=== PATIENT | female | born 1995 | race Caucasian/White ===

== ENCOUNTER 2017-02-27 13:10 | Inpatient (IN) | payer OTHER ==
[2017-02-27 13:44] VITALS: BMI 24.1
--- NOTE | 2017-02-27 18:48 | HP ---
COWS - Scale Resting Pulse: 0= [place] 80 or Below Sweatin= Chills/Flushing Restless Observation: 3= Extraneous Movement Pupil Size: 0= Normal to Room Light Bone or Joint Aches: 2= Severe Diffuse Aches Runny Nose/ Eye Tearin= Runny Nose/Eyes GI Upset > 30mins: 3= Vomiting/Diarrhea Tremor Observation: 2= Slight Tremor Visible Yawning Observation: 0= None Anxiety or Irritability: 2=Irritable/Anxious Goose Flesh Skin: 0=Smooth Skin COWS Score: 15 CIWA Score - CIWA Score Nausea/Vomitin-Mild Nausea/No Vomiting Muscle Tremors: 4-Moderate,w/Arms Extend Anxiety: 4-Mod. Anxious/Guarded Agitation: 4-Moderately Restless Paroxysmal Sweats: 1-Minimal Palms Moist Orientation: 2-Disoriented Date<2 days Tacttile Disturbances: 0-None Auditory Disturbances: 0-None Visual Disturbances: 0-None Headache: 0-None Present CIWA-Ar Total Score: 16 Admission [facility] - HPI Chief Complaint: WITHDRAWAL SX Allergies/Adverse Reactions: Allergies Allergy/AdvReac Type Severity Reaction Status Date / Time Fish Containing Products Allergy Verified 02/27/17 18:55 History of Present Illness: 22 YEARS OLD FEMALE WITH LONG HISTORY OF OPIATE XANAX NICOTINE DEPENDENCE HAS ASTHMA AND DEPRESSION AND ANXIETY IS ADMITTED TO DETOX Exam Limitations: No Limitations - Ebola screening Have you traveled outside of the country in the last 21 days: No Have you had contact with anyone from an Ebola affected area: No Have you been sick,other than usual withdrawal symptoms: No Do you have a fever: No - Review of Systems Constitutional: Loss of Appetite, Changes in sleep, Unintentional Wgt. Loss, Unexplained wgt Loss EENT: reports: No Symptoms Reported Respiratory: reports: SOB with Exertion Cardiac: reports: No Symptoms Reported GI: reports: Diarrhea, Nausea, Poor Appetite, Poor Fluid Intake, Abdominal cramping : reports: No Symptoms Reported Musculoskeletal: reports: Back Pain, Joint Pain, Muscle Pain, Neck Pain Integumentary: reports: Change in Color (HANDS + ARMS) Neuro: reports: Tremors Endocrine: reports: No Symptoms Reported Hematology: reports: No Symptoms Reported Psychiatric: reports: Judgement Intact, Anxious, Depressed Other Systems: Reviewed and Negative Patient History - Patient Medical History Hx Anemia: No Hx Asthma: Yes Hx Chronic Obstructive Pulmonary Disease (COPD): No Hx Cancer: No Hx Cardiac Disorders: No Hx Congestive Heart Failure: No Hx Hypertension: No Hx Hypercholesterolemia: No Hx Pacemaker: No HX Cerebrovascular Accident: No Hx Seizures: No Hx Dementia: No Hx Diabetes: No Hx Gastrointestinal Disorders: No Hx Liver Disease: No Hx Genitourinary Disorders: No Hx Sexually Transmitted Disorders: No Hx Renal Disease (ESRD): No Hx Thyroid Disease: No Hx Human Immunodeficiency Virus (HIV): No Hx Hepatitis C: No Hx Depression: Yes Hx Suicide Attempt: No Hx Bipolar Disorder: No Hx Schizophrenia: No - Patient Surgical History Past Surgical History: No - PPD History Previous Implant?: Yes Documented Results: Negative w/o proof Implanted On Prior [facility] Admission?: No PPD to be Administered?: Yes - Reproductive History Patient is a Female of Child Bearing Age (11 -55 yrs old): Yes Last Menstrual Period: 02/28/16 Patient : No - Smoking Cessation Smoking history: Current every day smoker Have you smoked in the past 12 months: Yes Aproximately how many cigarettes per day: 20 Cigars Per Day: 0 Hx Chewing Tobacco Use: No Initiated information on smoking cessation: Yes 'Breaking Loose' booklet given: 02/27/17 - Substance & Tx. History Hx Alcohol Use: Yes Hx Substance Use: Yes Substance Use Type: Alcohol, Cocaine, Heroin, Tranquilizers Hx Substance Use Treatment: Yes (2015 [facility]) - Substances Abused Heroin Route: Injection Frequency: Daily Amount used: 15 BAGS Age of first use: 15 Date of Last Use: 02/27/17 Alprazolam (Xanax) Route: Oral Frequency: 1-2 times per week Amount used: 8 MG Age of first use: 13 Date of Last Use: 02/25/17 Cocaine Route: Smoking Frequency: Daily Amount used: 150$ Age of first use: 15 Date of Last Use: 02/27/17 Alcohol Route: Oral Frequency: 3-6 times per week Amount used: 24OZX7 BEER Age of first use: 10 Date of Last Use: 02/26/17 Family Disease History - Family Disease History Family Disease History: Respiratory: Mother, Other: Brother (NO BROTHER) Admission Physical Exam [facility] - Vital Signs Vital Signs: Vital Signs - 24 hr 02/27/17 13:42 Temperature 97.0 F L Pulse Rate 77 Respiratory 18 Rate Blood Pressure 120/73 - Physical General Appearance: Yes: Appropriately Dressed, Mild Distress, Thin, Tremorous, Irritable, Sweating, Anxious HEENTM: Yes: Hearing grossly Normal, Normal ENT Inspection, Normocephalic, Normal Voice Respiratory: Yes: Chest Non-Tender, No Respiratory Distress, No Accessory Muscle Use, Wheezing Neck: Yes: Supple, Trachea in good position Breast: Yes: Breasts Symetrical Cardiology: Yes: Regular Rhythm, Regular Rate, S1, S2, Murmur Abdominal: Yes: Non Tender, Increased Bowel Sounds Genitourinary: Yes: Within Normal Limits Back: Yes: Normal Inspection Musculoskeletal: Yes: full range of Motion, Gait Steady, Back pain, Muscle Pain Extremities: Yes: Normal Inspection (IV HEROIN HANDS + ARMS), Normal Range of Motion, Non-Tender, Tremors Neurological: Yes: Alert, Motor Strength 5/5, Normal Response, Depressed Affect Integumentary: Yes: Warm, Track [place] Lymphatic: Yes: Within Normal Limits - Diagnostic (1) Alcohol dependence with uncomplicated withdrawal Current Visit: Yes Status: Acute (2) Opioid dependence with withdrawal Current Visit: Yes Status: Acute (3) Sedative, hypnotic or anxiolytic dependence with withdrawal, uncomplicated Current Visit: Yes Status: Acute (4) Cocaine dependence with withdrawal Current Visit: Yes Status: Chronic (5) Nicotine dependence Current Visit: Yes Status: Acute Qualifiers: Nicotine product type: cigarettes Substance use status: in withdrawal Qualified Code(s): F17.213 - Nicotine dependence, cigarettes, with withdrawal (6) Asthma Current Visit: Yes Status: Chronic Qualifiers: Asthma severity: mild Asthma persistence: intermittent Asthma complication type: with status asthmaticus Qualified Code(s): J45.22 - Mild intermittent asthma with status asthmaticus (7) Weight loss Current Visit: Yes Status: Acute (8) Bipolar II disorder Current Visit: Yes Status: Suspected (9) Murmur, cardiac Current Visit: Yes Status: Chronic Comment: ASYMPTOMATIC NO TREATMENT Cleared for Admission S - Detox or Rehab [facility] Level of Care: Medically Managed Detox Regimen/Protocol: Methadone/Valium S Breath Alcohol Content Breath Alcohol Content: 0 Urine Pregancy Test - Result Urine Test Results: Negative- NO Line Present Urine Drug Screen - Control Is Test Valid: Yes - Results Drug Screen Negative: No Urine Drug Screen Results: BHARATHI-Cocaine, OPI-Opiates, BZO-Benzodiazepines
[2017-02-27] MEDS ORDERED: guaiFENesin/D-METHORPHAN HB 10 ML UNIT-DOSE CUPS PO PRN (19:06)
[2017-02-27] MEDS ORDERED: MAG HYDROX/AL HYDROX/SIMETH 30 ML UNIT-DOSE CUP PO PRN (19:06)
[2017-02-27] MEDS ORDERED: LOPERAMIDE HCL 2 MG CAPSULE PO PRN (19:06)
[2017-02-27] MEDS ORDERED: diazePAM 5 MG TABLET PO ONE (19:06)
[2017-02-27] MEDS ORDERED: NICOTINE POLACRILEX 4 MG GUM BC PRN (19:06)
[2017-02-27] MEDS ORDERED: MAGNESIUM HYDROX 2400MG/30ML ORAL SUSPENSION 30 ML CUP PO PRN (19:06)
[2017-02-27] MEDS ORDERED: ACETAMINOPHEN 325 MG TABLET (FP) PO PRN (19:06)
[2017-02-27] MEDS ORDERED: MAGNESIUM CITRATE 300 ML BOTTLE PO PRN (19:06)
[2017-02-27] MEDS ORDERED: MENTHOL/PHENOL 1 EACH UD MM PRN (19:06)
[2017-02-27] MEDS ORDERED: METHADONE HCL 10 MG TABLET (FOR DETOX USE ONLY) PO ONE ×2 (19:06→23:00)
[2017-02-27] MEDS ORDERED: IBUPROFEN 400 MG TABLET (FP) PO PRN (19:06)
[2017-02-27] MEDS ORDERED: P-EPHED 60MG/TRIPROLIDI 2.5MG TABLET PO PRN (19:06)
[2017-02-27] MEDS ORDERED: ALBUTEROL SO4 18 GM HFA INHALER IH PRN (19:08)
[2017-02-27] MEDS: METHOCARBAMOL 500 MG TABLET PO PRN (22:22)
[2017-02-27] MEDS: GABAPENTIN 300 MG CAPSULE (FP) PO SCH (22:22)
[2017-02-27] MEDS: THIAMINE HCL 100 MG TABLET (FP) PO SCH (22:22)
[2017-02-27] MEDS: diazePAM 5 MG TABLET PO SCH (22:24)
[2017-02-27] MEDS: LIDOCAINE PATCH REMOVAL MC SCH (23:12)
[2017-02-28] MEDS: GABAPENTIN 300 MG CAPSULE (FP) PO SCH ×3 (05:57→22:12)
[2017-02-28] MEDS: diazePAM 5 MG TABLET PO SCH ×3 (05:58→22:12)
[2017-02-28] MEDS ORDERED: METHADONE HCL 10 MG TABLET (FOR DETOX USE ONLY) PO SCH (10:00)
[2017-02-28 10:05] LABS: HEMATOCRIT 39.5 % (32.4-45.2); HEMOGLOBIN 12.7 GM/dL (10.7-15.3); MCH 27.2 pg (25.7-33.7); MCHC 32.3 g/dl (32.0-36.0); MEAN CELL VOLUME 84.3 fl (80-96); PLATELET COUNT 318 K/MM3 (134-434); RBC 4.68 M/mm3 (3.60-5.2); RDW 14.5 % (11.6-15.6)
[2017-02-28 10:14] LABS: CHLORIDE 105 mmol/L (98-107); POTASSIUM 4.8 mmol/L (3.5-5.1); SODIUM 140 mmol/L (136-145)
[2017-02-28 10:28] LABS: ALK PHOS 91 U/L (45-117); ANION GAP 5 (8-16); BILIRUBIN,TOTAL 0.3 mg/dL (0.2-1.0); BLOOD UREA NITROGEN 14 mg/dL (7-18); CALCIUM 8.4 mg/dL (8.5-10.1); CO2 30 mmol/L (21-32); CREATININE 0.6 mg/dL (0.55-1.02); GLUCOSE,RANDOM 89 mg/dL (74-106); SGOT/AST 9 U/L (15-37); SGPT/ALT 12 U/L (12-78); TOT PROT 6.7 g/dl (6.4-8.2)
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
--- NOTE | 2017-02-28 10:55 | EKG ---
Test Reason : Blood Pressure : / mmHG Vent. Rate : 064 BPM Atrial Rate : 064 BPM P-R Int : 124 ms QRS Dur : 086 ms QT Int : 444 ms P-R-T Axes : 030 058 048 degrees QTc Int : 458 ms NORMAL SINUS RHYTHM NORMAL ECG NO PREVIOUS ECGS AVAILABLE Confirmed by MD Steffen, Dru ([id number]) on 02/28/2017 10:55:06 AM Referred By: Demetrio Reed Confirmed By:Dru Bourne MD
[2017-02-28] MEDS: NICOTINE 21 MG/24 HOURS TOPICAL PATCH TD SCH (11:14)
[2017-02-28] MEDS: LIDOCAINE 5% TOPICAL PATCH TP SCH (11:14)
[2017-02-28] MEDS: PRENATAL VITAMINS W/ FOLIC ACID TABLET (FP) PO SCH (11:14)
[2017-02-28] MEDS: diazePAM 5 MG TABLET PO PRN ×3 (11:17→19:43)
--- NOTE | 2017-02-28 11:34 | PN ---
[facility] CIWA - CIWA Score Nausea/Vomitin-No Nausea/No Vomiting Muscle Tremors: 4-Moderate,w/Arms Extend Anxiety: 4-Mod. Anxious/Guarded Agitation: 4-Moderately Restless Paroxysmal Sweats: 3 Orientation: 0-Oriented Tacttile Disturbances: 0-None Auditory Disturbances: 0-None Visual Disturbances: 0-None Headache: 1-Very Mild CIWA-Ar Total Score: 16 BHS COWS - Scale Resting Pulse: 1= [place] 81-100 Sweatin=Flushed/Facial Moisture Restless Observation: 1= Difficult to Sit Still Pupil Size: 0= Normal to Room Light Bone or Joint Aches: 2= Severe Diffuse Aches Runny Nose/ Eye Tearin= Runny Nose/Eyes GI Upset > 30mins: 1= Stomach Cramp Tremor Observation of Outstretched Hands: 2= Slight Tremor Visible Yawning Observation: 2= >3x During Session Anxiety or Irritability: 2=Irritable/Anxious Goose Flesh Skin: 0=Smooth Skin COWS Score: 15 S Progress Note (SOAP) Subjective: sweats shakes body aches chills interrupted sleep Objective: 02/28/17 11:33 Vital Signs Temperature 97.7 F 02/28/17 10:37 Pulse Rate 86 02/28/17 10:37 Respiratory Rate 18 02/28/17 10:37 Blood Pressure 123/72 02/28/17 10:37 O2 Sat by Pulse Oximetry (%) Laboratory Tests 02/28/17 02/28/17 07:00 07:00 WBC 7.0 RBC 4.68 Hgb 12.7 Hct 39.5 MCV 84.3 MCH 27.2 MCHC 32.3 RDW 14.5 Plt Count 318 MPV 9.0 Sodium 140 Potassium 4.8 Chloride 105 Carbon Dioxide 30 Anion Gap 5 L BUN 14 Creatinine 0.6 Creat Clearance w eGFR > 60 Random Glucose 89 Calcium 8.4 L Total Bilirubin 0.3 AST 9 L ALT 12 Alkaline Phosphatase 91 Total Protein 6.7 Albumin 3.0 L rest of labs pending aaox3 ambulating no acute distress Assessment: 02/28/17 11:33 withdrawal sx Plan: continue detox increase fluids labs pending
[2017-02-28 15:10] LABS: URINE APPEARANCE SLCLOUDY; URINE BILIRUBIN NEGATIVE (NEGATIVE); URINE BLOOD NEGATIVE (NEGATIVE); URINE COLOR YELLOW; URINE GLUCOSE (UA) NEGATIVE (NEGATIVE); URINE KETONE NEGATIVE (NEGATIVE); URINE LEUK ESTERASE TRACE (NEGATIVE); URINE NITRITE POSITIVE (NEGATIVE); URINE PROTEIN NEGATIVE (NEGATIVE); URINE UROBILINOGEN NEGATIVE mg/dL (0.2-1.0)
[2017-02-28 15:25] LABS: EPI CELLS RARE /HPF (FEW); URINE BACTERIA RARE /hpf (NONE SEEN)
[2017-02-28] MEDS: THIAMINE HCL 100 MG TABLET (FP) PO SCH (22:12)
[2017-02-28] MEDS: METHOCARBAMOL 500 MG TABLET PO PRN (22:12)
[2017-02-28] MEDS: QUEtiapine FUMARATE 50 MG TABLET PO SCH (22:12)
[2017-02-28] MEDS: LIDOCAINE PATCH REMOVAL MC SCH (23:01)
[2017-03-01] MEDS: diazePAM 5 MG TABLET PO PRN ×5 (01:29→22:14)
[2017-03-01] MEDS: GABAPENTIN 300 MG CAPSULE (FP) PO SCH ×3 (06:09→22:09)
[2017-03-01] MEDS: diazePAM 5 MG TABLET PO SCH ×3 (10:30→22:11)
[2017-03-01] MEDS: METHADONE HCL 5 MG TABLET (FOR DETOX USE ONLY) PO SCH (10:31)
[2017-03-01] MEDS: LIDOCAINE 5% TOPICAL PATCH TP SCH (10:31)
[2017-03-01] MEDS: PRENATAL VITAMINS W/ FOLIC ACID TABLET (FP) PO SCH (10:31)
[2017-03-01] MEDS: NICOTINE 21 MG/24 HOURS TOPICAL PATCH TD SCH (10:31)
[2017-03-01] MEDS ORDERED: diazePAM 5 MG TABLET PO ONE (10:55)
--- NOTE | 2017-03-01 13:01 | PN ---
S CIWA - CIWA Score Nausea/Vomitin Muscle Tremors: 4-Moderate,w/Arms Extend Anxiety: 3 Agitation: 1-Slight > Activity Paroxysmal Sweats: 2 Orientation: 0-Oriented Tacttile Disturbances: 1-Very Mild Itch/Numbness Auditory Disturbances: 1-Very Mild Visual Disturbances: 1-Very Mild Sensitivity Headache: 0-None Present CIWA-Ar Total Score: 16 BHS COWS - Scale Resting Pulse: 1= [place] 81-100 Sweatin=Flushed/Facial Moisture Restless Observation: 1= Difficult to Sit Still Pupil Size: 0= Normal to Room Light Bone or Joint Aches: 1= Mild Discomfort Runny Nose/ Eye Tearin= None GI Upset > 30mins: 2= Nausea/Diarrhea Tremor Observation of Outstretched Hands: 2= Slight Tremor Visible Yawning Observation: 4= Several Times/Minute Anxiety or Irritability: 2=Irritable/Anxious Goose Flesh Skin: 0=Smooth Skin COWS Score: 15 S Progress Note (SOAP) Subjective: Alert, anxious, interrupted sleep, nausea, shakes, chills, body ache Objective: 03/01/17 13:04 withdrawal symptoms Assessment: 03/01/17 13:05 Last Vital Signs Temp Pulse Resp BP Pulse Ox 98.1 F 91 H 18 99/56 03/01/17 10:00 03/01/17 10:00 03/01/17 10:00 03/01/17 10:00 Laboratory Last Values WBC 7.0 K/mm3 (4.0-10.0) 02/28/17 07:00 RBC 4.68 M/mm3 (3.60-5.2) 02/28/17 07:00 Hgb 12.7 GM/dL (10.7-15.3) 02/28/17 07:00 Hct 39.5 % (32.4-45.2) 02/28/17 07:00 MCV 84.3 fl (80-96) 02/28/17 07:00 MCH 27.2 pg (25.7-33.7) 02/28/17 07:00 MCHC 32.3 g/dl (32.0-36.0) 02/28/17 07:00 RDW 14.5 % (11.6-15.6) 02/28/17 07:00 Plt Count 318 K/MM3 (134-434) 02/28/17 07:00 MPV 9.0 fl (7.5-11.1) 02/28/17 07:00 Sodium 140 mmol/L (136-145) 02/28/17 07:00 Potassium 4.8 mmol/L (3.5-5.1) 02/28/17 07:00 Chloride 105 mmol/L (98-107) 02/28/17 07:00 Carbon Dioxide 30 mmol/L (21-32) 02/28/17 07:00 Anion Gap 5 (8-16) L 02/28/17 07:00 BUN 14 mg/dL (7-18) 02/28/17 07:00 Creatinine 0.6 mg/dL (0.55-1.02) 02/28/17 07:00 Creat Clearance w eGFR > 60 (>60) 02/28/17 07:00 Random Glucose 89 mg/dL (74-106) 02/28/17 07:00 Calcium 8.4 mg/dL (8.5-10.1) L 02/28/17 07:00 Total Bilirubin 0.3 mg/dL (0.2-1.0) 02/28/17 07:00 AST 9 U/L (15-37) L 02/28/17 07:00 ALT 12 U/L (12-78) 02/28/17 07:00 Alkaline Phosphatase 91 U/L (45-117) 02/28/17 07:00 Total Protein 6.7 g/dl (6.4-8.2) 02/28/17 07:00 Albumin 3.0 g/dl (3.4-5.0) L 02/28/17 07:00 Urine Color Yellow 02/28/17 12:30 Urine Appearance Slcloudy 02/28/17 12:30 Urine pH 7.0 (5.0-8.0) 02/28/17 12:30 Ur Specific [place] 1.008 (1.001-1.035) 02/28/17 12:30 Urine Protein Negative (NEGATIVE) 02/28/17 12:30 Urine Glucose (UA) Negative (NEGATIVE) 02/28/17 12:30 Urine Ketones Negative (NEGATIVE) 02/28/17 12:30 Urine Blood Negative (NEGATIVE) 02/28/17 12:30 Urine Nitrite Positive (NEGATIVE) 02/28/17 12:30 Urine Bilirubin Negative (NEGATIVE) 02/28/17 12:30 Urine Urobilinogen Negative mg/dL (0.2-1.0) 02/28/17 12:30 Ur Leukocyte Esterase Trace (NEGATIVE) 02/28/17 12:30 Urine WBC (Auto) 2 /hpf (3-5) 02/28/17 12:30 Urine RBC (Auto) <1 /hpf (0-3) 02/28/17 12:30 Ur Epithelial Cells Rare /HPF (FEW) 02/28/17 12:30 Urine Bacteria Rare /hpf (NONE SEEN) 02/28/17 12:30 RPR Titer Nonreactive (NONREACTIVE) 02/28/17 07:00 Labs noted Plan: Continue Detox Increase fluids
[2017-03-01] MEDS: METHOCARBAMOL 500 MG TABLET PO PRN (17:41)
[2017-03-01] MEDS: LIDOCAINE PATCH REMOVAL MC SCH (22:08)
[2017-03-01] MEDS: THIAMINE HCL 100 MG TABLET (FP) PO SCH (22:09)
[2017-03-01] MEDS: QUEtiapine FUMARATE 50 MG TABLET PO SCH (22:09)
[2017-03-02] MEDS: diazePAM 5 MG TABLET PO PRN ×2 (03:22→07:55)
[2017-03-02] MEDS: GABAPENTIN 300 MG CAPSULE (FP) PO SCH (05:54)
[2017-03-02] MEDS: METHOCARBAMOL 500 MG TABLET PO PRN (05:57)
[2017-03-02 09:29] VITALS: BP 119/78; PULSE 82; TEMP 99.7
[2017-03-02] MEDS: diazePAM 5 MG TABLET PO SCH (09:50)
[2017-03-02] MEDS: PRENATAL VITAMINS W/ FOLIC ACID TABLET (FP) PO SCH (09:50)
[2017-03-02] MEDS: METHADONE HCL 5 MG TABLET (FOR DETOX USE ONLY) PO SCH (09:50)
--- NOTE | 2017-03-02 11:38 | PN ---
[facility] Progress Note Note: Patient has been very disruptive, disrespectful and belligerent on the unit to staff. Team meeting was held with patient, nursing supervisor char house, counselor and unit staff. Patient was educated on unit rules and code of conduct. Patient was educated on the importance to complete detox and establish continuity of care. Patient agree with the above.
--- NOTE | 2017-03-02 11:42 | PN ---
[facility] Progress Note Note: Patient requested permission to make a phone call. Permission was granted after , patient requested to leave the unit. Several attempts were made to encourage the patient to stay and complete detox. Risk of leaving the unit were addressed with the patient. Patient was admin about leaving and signed AMA.
--- NOTE | 2017-03-02 12:51 | DS ---
[facility] Detox Discharge Summary Admission Date: 02/27/17 Discharge Date: 03/02/17 - History Present History: Alcohol Dependence, Cannabis Dependence, Cocaine Dependence, Opioid Dependence, Sedative Dependence - Physical Exam Results Vital Signs: Vital Signs Temperature 99.7 F H 03/02/17 09:29 Pulse Rate 82 03/02/17 09:29 Respiratory Rate 18 03/02/17 09:29 Blood Pressure 119/78 03/02/17 09:29 O2 Sat by Pulse Oximetry (%) - Medication Discharge Medications: Ambulatory Orders Albuterol Sulfate Inhaler - [Ventolin Hfa Inhaler -] 2 inh PO Q4H 02/27/17 - Diagnosis (1) Insomnia Current Visit: Yes Status: Acute (2) Nicotine dependence Current Visit: Yes Status: Acute Qualifiers: Nicotine product type: cigarettes Substance use status: uncomplicated Qualified Code(s): F17.210 - Nicotine dependence, cigarettes, uncomplicated (3) Alcohol dependence with uncomplicated withdrawal Current Visit: Yes Status: Chronic (4) Asthma Current Visit: Yes Status: Chronic Qualifiers: Asthma severity: mild Asthma persistence: intermittent Asthma complication type: with status asthmaticus Qualified Code(s): J45.22 - Mild intermittent asthma with status asthmaticus (5) Cocaine dependence with withdrawal Current Visit: Yes Status: Chronic (6) Opioid dependence with withdrawal Current Visit: Yes Status: Chronic (7) Sedative, hypnotic or anxiolytic dependence with withdrawal, uncomplicated Current Visit: Yes Status: Chronic (8) Bipolar disorder Current Visit: No Status: Chronic - AMA Did Patient Leave Against Medical Advice: Yes (Patient was counselded on the risk of not completing detox. )
[2017-03-03] MEDS ORDERED: METHADONE HCL 10 MG TABLET (FOR DETOX USE ONLY) PO SCH (10:00)
[2017-03-03] MEDS ORDERED: diazePAM 5 MG TABLET PO SCH (10:00)
[2017-03-04] MEDS ORDERED: METHADONE HCL 5 MG TABLET (FOR DETOX USE ONLY) PO SCH (06:00)
== END 2017-03-02 11:33 | disposition left against medical advice (07) | DRG 770 ==
LOC: YASAS 13:10 → Y6N 19:16
PROVIDERS: ADMIT Internal Medicine; ATTEND Internal Medicine
PROC: HZ2ZZZZ Detoxification Services for Substance Abuse Treatment (ICD-10-PCS; principal; 2017-02-27)
DX: F11.23 Opioid dependence with withdrawal (principal); F13.230 Sedative, hypnotic or anxiolytic dependence with withdrawal, uncomplicated; F10.230 Alcohol dependence with withdrawal, uncomplicated; F14.20 Cocaine dependence, uncomplicated; F17.210 Nicotine dependence, cigarettes, uncomplicated; F31.81 Bipolar II disorder; J45.22 Mild intermittent asthma with status asthmaticus; G47.00 Insomnia, unspecified; R01.1 Cardiac murmur, unspecified; Z87.898 Personal history of other specified conditions
CPT/HCPCS: 36415; 80053; 81003; 81015; 85027; 86593; 93005; 93010